=== PATIENT | female | born 1995 | race Caucasian/White ===

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

== ENCOUNTER 2017-02-28 16:16 | Emergency (ER) ==
[2017-02-28 16:25] VITALS: BP 120/78; TEMP 98; BMI 20.3
--- NOTE | 2017-02-28 16:42 | ED.PDOC ---
General ED Provider: Dr. COLTON STARK Chief Complaint: Sore Throat Stated Complaint: sore throat Time Seen by Physician: 16:18 Mode of Arrival: Walk-In Information Source: Patient Exam Limitations: No limitations Primary Care Provider: RONA SAEED Nursing and Triage Documentation Reviewed and Agree: Yes (seen with staff) EENT Complaint Exam - Throat Complaint/Exam Symptoms Are: Still present Timimg: Constant Initial Severity: Mild Current Severity: Mild Aggravating: Reports: None Associated Signs and Symptoms: Reports: Cough, Nasal congestion Uvula Midline: Yes Dianne-tonsillar Fluctuence: No Scarlatinaform Rash Present: No Stridor Present: No Sinus Tenderness Present: No Tonsillar Hypertrophy Present: No Tonsillar Exudate Present: No Dianne-tonsillar Swelling Present: No Adenopathy Present: No Splenomegaly Present: No Review of Systems - Review Of Systems Constitutional: Reports: No symptoms Eyes: Reports: No symptoms Ears, Nose, Mouth, Throat: Reports: Throat pain Respiratory: Reports: No symptoms Cardiac: Reports: No symptoms GI: Reports: No symptoms : Reports: No symptoms Musculoskeletal: Reports: No symptoms Skin: Reports: No symptoms Neurological: Reports: No symptoms Endocrine: Reports: No symptoms Hematologic/Lymphatic: Reports: No symptoms All Other Systems: Reviewed and Negative Past Medical History - Past Medical History Previously Healthy: Yes Endocrine: Reports: None Cardiovascular: Reports: None Respiratory: Reports: None Hematological: Reports: None Gastrointestinal: Reports: None Genitourinary: Reports: None Neuro/Psych: Reports: None Musculoskeletal: Reports: None Cancer: Reports: None Last Menstrual Period: 3 weeks 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 - Surgical History General Surgical History: Reports: Other (left ear surgery) - Family History Family History: Reports: None, Unknown - Social History Smoking Status: Current every day smoker, Heavy tobacco smoker Hx Substance Use: No Alcohol Screening: Occasionally Physical Exam - Physical Exam Appearance: Well-appearing, No pain distress, Well-nourished Eyes: ALEXIA, EOMI, Conjunctiva clear ENT: Erythema, Exudate Respiratory: Airway patent, Breath sounds clear, Breath sounds equal, Respirations nonlabored Cardiovascular: RRR, Pulses normal, No rub, No murmur GI/: Soft, Nontender, No masses, Bowel sounds normal, No Organomegaly Musculoskeletal: Normal strength, ROM intact, No edema, No calf tenderness Skin: Warm, Dry, Normal color Neurological: Sensation intact, Motor intact, Reflexes intact, Cranial nerves intact, Alert, Oriented Psychiatric: Affect appropriate, Mood appropriate Critical Care Note - Critical Care Note Total Time (mins): 0 Course - Course Vital Signs: Temp Pulse Resp BP Pulse Ox 02/28/17 16:17 98.0 F 93 H 20 120/78 98 Departure - Departure Time of Disposition: 16:41 Disposition: HOME SELF-CARE Discharge Problem: Sore throat symptom, Streptococcal sore throat Instructions: Pharyngitis (ED), Strep Throat (ED) Condition: Good Pt referred to PMD for follow-up: Yes Additional Instructions: Please call your Family Physician as soon as possible to schedule a follow-up appointment. Allergies/Adverse Reactions: Allergies No Known Allergies Allergy (Verified 02/28/17 16:23) Home Medications: Ambulatory Orders Hydrocodone/Acetaminophen [[place] 5-325 Tablet] 1 tab PO TID PRN #10 tablet 01/16
== END 2017-02-28 16:57 | disposition home or self-care (01) ==
LOC: ED 16:16
DX: J02.0 Streptococcal pharyngitis (principal); F17.210 Nicotine dependence, cigarettes, uncomplicated
CPT/HCPCS: 99282

== ENCOUNTER 2017-04-23 08:28 | Emergency (ER) ==
[2017-04-23 08:32] VITALS: BP 101/70; TEMP 96.7; BMI 21.4
--- NOTE | 2017-04-23 09:45 | CT ---
EXAM: CT abdomen pelvis without contrast HISTORY: Suprapubic pain COMPARISON: 12/21/2016 TECHNIQUE: CT abdomen pelvis performed without intravenous contrast. Coronal and sagittal reformatt ed images obtained. FINDINGS: Lung bases clear. No free air. No acute abnormalities of the bones. Heart normal in siz e. Evaluation organ parenchyma limited without contrast. Liver appears normal. Gallbladder appears normal. Pancreas appears normal. Spleen appears normal. Adrenals appear normal. Kidneys appear n ormal without hydronephrosis or nephrolithiasis. No calculi visualized in normal course of the urete rs. Bladder only mildly distended and poorly evaluated, grossly unremarkable. Uterus unremarkable. Aorta normal in caliber. No lymphadenopathy or ascites. Stomach appears normal. No dilated loops small bowel. Partially visualized appendix appears normal. Colon unremarkable. No inflammatory str anding identified in the abdomen pelvis. IMPRESSION: No acute abnormality identified in the abdomen or pelvis.
--- NOTE | 2017-04-23 09:54 | ED.PDOC ---
General ED Provider: Dr. COLTON STARK Chief Complaint: Abdominal Pain Stated Complaint: abdominal pain Time Seen by Physician: 08:30 (seen with ALBERTO JIMENEZ AND sarahi) Mode of Arrival: Walk-In Information Source: Patient Exam Limitations: No limitations Primary Care Provider: RONA SAEED Nursing and Triage Documentation Reviewed and Agree: Yes Reviewed sepsis parameters & appropriate labs ordered?: Yes System Inflammatory Response Syndrome: Not Applicable Sepsis Protocol: For patient's 13 years and over: Temp is 96.8 and below OR 101 and greater Pulse >90 BPM Resp >20/minute Acutely Altered Mental Status Are patient's symptoms suggestive of a new infection, such as: -Pneumonia -Skin, Soft Tissue -Endocarditis -UTI -Bone, Joint Infection -Implantable Device -Acute Abdominal Infection -Wound Infection -Meningitis -Blood Stream Catheter Infection -Unknown System Inflammatory Response Syndrome: Not Applicable GI Complaint Exam - Abdominal Pain Complaint/Exam Onset: Sudden () Duration: rlq pain Symptoms Are: Still present Initial Severity: Moderate Current Severity: None Location of Pain: RLQ Character: Reports: Aching Aggravating: Reports: None Alleviating: Reports: None Associated Signs and Symptoms: Denies: Diaphoresis, Fever, Cough, Chest pain, Dizziness, Back pain, Constipation, Blood in stool, Dysuria, Urinary frequency, Decreased urine output, Decreased appetite, Vaginal bleeding, Vaginal discharge , Nausea, Vomiting, Diarrhea, Sore throat, Decreased activity Ectopic Risk Factors: Reports: None Ovarian Torsion Risk Factors: Reports: None Surgical Obstruction Risk Factors: Reports: None Related Surgical History: Reports: None Patient Rh Status: Unknown Abdominal Findings: Present: None Differential Diagnoses: Appendicitis, Bowel Obstruction, Constipation, UTI Review of Systems - Review Of Systems Constitutional: Reports: No symptoms Eyes: Reports: No symptoms Ears, Nose, Mouth, Throat: Reports: No symptoms Respiratory: Reports: No symptoms Cardiac: Reports: No symptoms GI: Reports: Abdominal pain : Reports: No symptoms Musculoskeletal: Reports: No symptoms Skin: Reports: No symptoms Neurological: Reports: No symptoms Endocrine: Reports: No symptoms Hematologic/Lymphatic: Reports: No symptoms All Other Systems: Reviewed and Negative Past Medical History - Past Medical History Previously Healthy: Yes Endocrine: Reports: None Cardiovascular: Reports: None Respiratory: Reports: None Hematological: Reports: None Gastrointestinal: Reports: None Genitourinary: Reports: None Neuro/Psych: Reports: None Musculoskeletal: Reports: None Cancer: Reports: None Last Menstrual Period: 04/03/16 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 - Surgical History General Surgical History: Reports: Other (left ear surgery) - Family History Family History: Reports: None, Unknown - Social History Smoking Status: Current every day smoker, Heavy tobacco smoker Hx Substance Use: No Alcohol Screening: Occasionally - Immunizations Tetanus Shot up to Date: Yes Physical Exam - Physical Exam Appearance: Well-appearing, No pain distress, Well-nourished Eyes: ALEXIA, EOMI, Conjunctiva clear ENT: Ears normal, Nose normal, Oropharynx normal Respiratory: Airway patent, Breath sounds clear, Breath sounds equal, Respirations nonlabored Cardiovascular: RRR, Pulses normal, No rub, No murmur GI/: Soft, Nontender, No masses, Bowel sounds normal, No Organomegaly Musculoskeletal: Normal strength, ROM intact, No edema, No calf tenderness Skin: Warm, Dry, Normal color Neurological: Sensation intact, Motor intact, Reflexes intact, Cranial nerves intact, Alert, Oriented Psychiatric: Affect appropriate, Mood appropriate Critical Care Note - Critical Care Note Total Time (mins): 0 Course - Course Hematology/Chemistry: 04/23/17 09:08 04/23/17 09:08 Orders, Labs, Meds: Lab Review 04/23/17 04/23/17 04/23/17 09:08 09:08 09:10 WBC 9.99 RBC 4.57 Hgb 12.9 Hct 38.6 MCV 84.5 MCH 28.2 MCHC 33.4 RDW Coeff of Joan 14.2 Plt Count 289 Immature Gran % (Auto) 0.3 Neut % (Auto) 65.2 Lymph % (Auto) 24.8 Branch % (Auto) 6.9 Eos % (Auto) 2.1 Baso % (Auto) 0.7 Immature Gran # (Auto) 0.0 Neut # 6.5 Lymph # 2.5 Branch # 0.7 Eos # 0.2 Baso # 0.1 Sodium 139 Potassium 4.3 Chloride 105 Carbon Dioxide 29 Anion Gap 9.3 BUN 10 Creatinine 0.62 Estimated GFR (MDRD) 124.00 BUN/Creatinine Ratio 16.12 Glucose 93 Calcium 9.0 Total Bilirubin 0.4 L AST 12 ALT 8 L Alkaline Phosphatase 48 Total Protein 6.0 L Albumin 3.6 L Globulin 2.4 Albumin/Globulin Ratio 1.50 Amylase 23 L Lipase 12 Urine Color Yellow Urine Clarity Clear Urine pH 6.0 Ur Specific [place] 1.020 Urine Protein Negative Urine Glucose (UA) Negative Urine Ketones Negative Urine Blood Negative Urine Nitrite Negative Urine Bilirubin Negative Urine Urobilinogen 0.2 Ur Leukocyte Esterase Negative Orders Category Date Time Status AMYLASE Stat LAB 04/23/17 09:00 Ordered CBC W/ AUTO DIFF Stat LAB 04/23/17 09:00 Ordered COMPREHENSIVE METABOLIC PANEL Stat LAB 04/23/17 09:00 Ordered LIPASE Stat LAB 04/23/17 09:00 Ordered URINALYSIS C & S IF INDICATED Stat LAB 04/23/17 09:[address] ABDOMEN/PELVIS WO CONTRAST Stat RADS 04/23/17 09:01 Ordered Vital Signs: Temp Pulse Resp BP Pulse Ox 04/23/17 08:29 96.7 F L 92 H 20 101/70 99 Departure - Departure Time of Disposition: 09:54 Disposition: HOME SELF-CARE Discharge Problem: Abdominal pain Instructions: Abdominal Pain (ED) Condition: Good Pt referred to PMD for follow-up: Yes IPMP verified?: Yes Additional Instructions: Please call your Family Physician as soon as possible to schedule a follow-up appointment. Allergies/Adverse Reactions: Allergies No Known Allergies Allergy (Verified 04/23/17 08:32) Home Medications: Ambulatory Orders 1 [No Reported Medications] 04/23/17
== END 2017-04-23 10:35 | disposition home or self-care (01) ==
LOC: ED 08:28
DX: R10.31 Right lower quadrant pain (principal); F17.210 Nicotine dependence, cigarettes, uncomplicated
CPT/HCPCS: 36415; 80053; 81001; 82150; 83690; 85025; 99283

== ENCOUNTER 2017-09-02 19:18 | Emergency (ER) | payer OTHER, BC ==
[2017-09-02 19:26] VITALS: BP 104/74; TEMP 97.8; BMI 22.3
[2017-09-02] MEDS: MOTRIN PO STA (19:54)
--- NOTE | 2017-09-02 20:27 | DI ---
EXAM: Three-view right wrist COMPARISON: None HISTORY: Trauma and pain FINDINGS: There is no acute fracture or dislocation. Alignment is anatomic. Joint spaces are well p reserved and there is no significant degenerative change. There is no soft tissue swelling. No unexpe cted radio-opaque foreign bodies. IMPRESSION: No acute osseous abnormality.
--- NOTE | 2017-09-02 20:28 | DI ---
EXAM: Three-view right shoulder COMPARISON: None HISTORY: Trauma and pain FINDINGS: There is no acute fracture or dislocation. Alignment of the glenohumeral joint is anatomic . Joint spaces are well preserved. There is a mild degree of separation of the right acromioclavicu lar joint. There is no soft tissue swelling. No unexpected radio-opaque foreign bodies. IMPRESSION: 1. Normal right glenohumeral joint with no dislocation. 2. Mild right acromioclavicular separation.
--- NOTE | 2017-09-02 20:42 | ED.PDOC ---
General ED Provider: Dr. KANU SINGLETON Chief Complaint: Extremity Swelling/Pain Stated Complaint: Noticed that her right wrist and scapular has been aching, Denies any Recent trauma but has been helping pull patients at the [place]. Took Tylenol at 4 pm Time Seen by Physician: 20:00 Mode of Arrival: Walk-In Information Source: Patient Primary Care Provider: RONA SAEED Nursing and Triage Documentation Reviewed and Agree: Yes Reviewed sepsis parameters & appropriate labs ordered?: No System Inflammatory Response Syndrome: Not Applicable Sepsis Protocol: For patient's 13 years and over: Temp is 96.8 and below OR 101 and greater Pulse >90 BPM Resp >20/minute Acutely Altered Mental Status Are patient's symptoms suggestive of a new infection, such as: -Pneumonia -Skin, Soft Tissue -Endocarditis -UTI -Bone, Joint Infection -Implantable Device -Acute Abdominal Infection -Wound Infection -Meningitis -Blood Stream Catheter Infection -Unknown Review of Systems - Review Of Systems Constitutional: Reports: No symptoms Musculoskeletal: Reports: Back pain, Joint pain Neurological: Reports: No symptoms All Other Systems: Reviewed and Negative Past Medical History - Past Medical History Previously Healthy: Yes Endocrine: Reports: None Cardiovascular: Reports: None Respiratory: Reports: None Hematological: Reports: None Gastrointestinal: Reports: None Genitourinary: Reports: None Neuro/Psych: Reports: None Musculoskeletal: Reports: None Cancer: Reports: None Last Menstrual Period: 3 WEEKS AGO 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 - Surgical History General Surgical History: Reports: Other (left ear surgery) - Family History Family History: Reports: None, Unknown - Social History Smoking Status: Current every day smoker, Heavy tobacco smoker Hx Substance Use: No Alcohol Screening: Occasionally - Immunizations Tetanus Shot up to Date: Yes Physical Exam - Physical Exam Appearance: Well-appearing Pain Distress: Moderate Neck: Supple Respiratory: Airway patent, Breath sounds clear, Breath sounds equal, Respirations nonlabored Cardiovascular: RRR Musculoskeletal: Normal strength, ROM intact Skin: Warm, Dry Neurological: Sensation intact, Alert, Oriented Interpretation - Radiology Interpretation Radiology Interpretation By: Radiologist Radiology Results: Negative Exam Interpreted: Other (wrist and shoulder ) Critical Care Note - Critical Care Note Total Time (mins): 0 Course - Course Orders, Labs, Meds: Orders Category Date Time Status STARR [ED STARR WRAP] .ONCE EMERGENCY 09/02/17 20:49 Active ED SPLINT APPLICATION .ONCE EMERGENCY 09/02/17 20:49 Active Ibuprofen [Motrin] MEDS 09/02/17 19:41 Discontinued 800 mg PO ONCE STA SHOULDER, RIGHT MIN 2V Stat RADS 09/02/17 19:40 Completed WRIST, RIGHT 3 VIEWS Stat RADS 09/02/17 19:40 Completed Medications Discontinued Medications Generic Name Dose Route Start Last Admin Trade Name Freq PRN Reason Stop Dose Admin Ibuprofen 800 mg 09/02/17 19:41 09/02/17 19:54 Motrin PO 09/02/17 19:42 800 mg ONCE STA Administration Vital Signs: Temp Pulse Resp BP Pulse Ox 09/02/17 19:19 97.8 F 89 16 104/74 97 Departure - Departure Time of Disposition: 20:41 Disposition: HOME SELF-CARE Discharge Problem: Pain in scapula Wrist pain, acute Qualifiers: Laterality: right Qualified Code(s): M25.531 - Pain in right wrist Instructions: Shoulder Sprain (ED), Arthralgia (ED) Condition: Good Pt referred to PMD for follow-up: Yes IPMP verified?: No Additional Instructions: Take medications as prescribed Follow up with PCP in the 3-5 days rest. Prescriptions: Ibuprofen [Motrin] 600 mg PO Q6H PRN #30 tablet PRN Reason: Analgesia Allergies/Adverse Reactions: Allergies No Known Allergies Allergy (Verified 09/02/17 19:28) Home Medications: Ambulatory Orders Ibuprofen [Motrin] 600 mg PO Q6H PRN #30 tablet 09/02/17 Disposition Discussed With: Patient, Family
== END 2017-09-02 21:05 | disposition home or self-care (01) ==
LOC: ED 19:18
DX: M25.531 Pain in right wrist (principal); M25.511 Pain in right shoulder; F17.210 Nicotine dependence, cigarettes, uncomplicated
CPT/HCPCS: 99283

== ENCOUNTER 2017-10-05 12:29 | Outpatient (CLI) | END 2017-10-05 12:30 | disposition home or self-care (01) | LOC: LAB 12:29 | PROVIDERS: ATTEND Emergency Medicine | DX: R35.0 Frequency of micturition (principal) | CPT/HCPCS: 36415; 80053; 81001; 85025; 87086 ==

== ENCOUNTER 2018-01-03 15:52 | Outpatient (CLI) | END 2018-01-03 15:53 | disposition home or self-care (01) | LOC: RHC-LAB 15:52 | PROVIDERS: ATTEND Nurse Practitioner Family | DX: J02.9 Acute pharyngitis, unspecified (principal) | CPT/HCPCS: 87651 ==

== ENCOUNTER 2018-04-01 02:19 | Outpatient (CLI) | payer OTHER, BC | END 2018-04-01 02:34 | disposition short-term general hospital (02) | LOC: AMBL 02:19 | PROVIDERS: ATTEND Internal Medicine Geriatric Medicine | DX: R56.9 Unspecified convulsions (principal); R40.4 Transient alteration of awareness; R11.10 Vomiting, unspecified; R00.0 Tachycardia, unspecified; R40.2431 Glasgow coma scale score 3-8, in the field [EMT or ambulance] ==

== ENCOUNTER 2018-06-02 13:29 | Emergency (ER) | payer OTHER, BC ==
[2018-06-02 13:37] VITALS: BP 118/71; TEMP 97.3; BMI 23.8
--- NOTE | 2018-06-02 13:53 | ED.PDOC ---
General ED Provider: Dr. TONY INFANTE Chief Complaint: Tooth Problem Stated Complaint: right lower dental bank-posterior molar caries and pain,Tooth is sealed from. older dental care.Gum intact. Time Seen by Physician: 13:53 Mode of Arrival: Walk-In Information Source: Patient Exam Limitations: No limitations Primary Care Provider: RONA SAEED Seen Within Last 72 Hours for Same Complaint By: In-Patient Facility Nursing and Triage Documentation Reviewed and Agree: Yes Does patient meet sepsis criteria?: No System Inflammatory Response Syndrome: Acutely Altered Mental Status Sepsis Protocol: For patient's 13 years and over: Temp is 96.8 and below OR 101 and greater Pulse >90 BPM Resp >20/minute Acutely Altered Mental Status Are patient's symptoms suggestive of a new infection, such as: -Pneumonia -Skin, Soft Tissue -Endocarditis -UTI -Bone, Joint Infection -Implantable Device -Acute Abdominal Infection -Wound Infection -Meningitis -Blood Stream Catheter Infection -Unknown EENT Complaint Exam - Dental/Oral Complaint/Exam Mechanism of Injury: Unknown Onset/Duration: few days Symptoms Are: Still present Timing: Constant Initial Severity: Moderate Current Severity: Mild Location: right lower nolar Character: Reports: Aching Aggravating: Reports: Heat, Cold, Chewing Alleviating: Denies: Heat Associated Signs and Symptoms: Reports: Discharge, Fever Related History: Reports: Previous tooth problem Cardiac Risk Factors: Reports: Prior MS Tooth Findings: Present: Gross decay Cervical Lymphadenopathy Present: No Facial Swelling Present: No Oropharynx Findings: Present: Clots Septal Hematoma: No Foreign Body Present: No Dysphagia Present: No Drooling Present: No Asymmetrical Tonsillar Swelling Present: No Uvula Midline: No Dianne-tonsillar Fluctuence: No Trismus Present: No Palatal Petechiae Present: No Scarlatinaform Rash Present: No Review of Systems - Review Of Systems Constitutional: Reports: No symptoms All Other Systems: Reviewed and Negative Past Medical History - Past Medical History Previously Healthy: Yes Endocrine: Reports: None Cardiovascular: Reports: None Respiratory: Reports: None Hematological: Reports: None Gastrointestinal: Reports: None Genitourinary: Reports: None Neuro/Psych: Reports: None Musculoskeletal: Reports: None Cancer: Reports: None Last Menstrual Period: LAST WEEK 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 - Surgical History General Surgical History: Reports: Other (left ear surgery) - Family History Family History: Reports: None, Unknown - Social History Smoking Status: Current every day smoker, Light tobacco smoker Hx Substance Use: No Alcohol Screening: None - Immunizations Tetanus Shot up to Date: Yes Physical Exam - Physical Exam Appearance: Well-appearing Critical Care Note - Critical Care Note Total Time (mins): 0 Course - Course Vital Signs: Temp Pulse Resp BP Pulse Ox 06/02/18 13:29 97.3 F L 76 18 118/71 96 Departure - Departure Time of Disposition: 14:00 Disposition: HOME SELF-CARE Discharge Problem: Dental caries Instructions: Dental Abscess (ED) Condition: Good Pt referred to PMD for follow-up: No IPMP verified?: No Additional Instructions: Prescription for PCN 500mg tid x 7 days #21 Adel 5/325 one tab every 6 hours as needed #10 Allergies/Adverse Reactions: Allergies No Known Allergies Allergy (Verified 06/02/18 13:37) Home Medications: Ambulatory Orders Ibuprofen 600 mg PO Q6H PRN 06/02/18 Disposition Discussed With: Patient
== END 2018-06-02 14:09 | disposition home or self-care (01) ==
LOC: ED 13:29
DX: K08.89 Other specified disorders of teeth and supporting structures (principal); K02.7 Dental root caries; F17.210 Nicotine dependence, cigarettes, uncomplicated
CPT/HCPCS: 99282